=== PATIENT | female | born 2005 | race Caucasian/White ===

== ENCOUNTER 2025-08-09 23:12 | Emergency (ER) | payer OTHER ==
[2025-08-09 23:28] VITALS: PULSE 88; RESP 18; TEMP 98.2; BMI 25.7
[2025-08-10] MEDS ORDERED: ACETAMINOPHEN INJECTION 100 ML ONE (00:04)
[2025-08-10] MEDS ORDERED: MAG HYDROX/AL HYDROX/SIMETH 30 ML UNIT-DOSE CUP ONE (00:04)
[2025-08-10] MEDS ORDERED: ONDANSETRON 4 MG/2 ML VIAL ONE (00:05)
[2025-08-10] MEDS: MAG HYDROX/AL HYDROX/SIMETH 30 ML UNIT-DOSE CUP PO ONE (00:17)
[2025-08-10] MEDS: ONDANSETRON 4 MG/2 ML VIAL IVPUSH ONE (00:17)
[2025-08-10] MEDS: ACETAMINOPHEN 1000 MG/100 ML BAG IVPB ONE (00:18)
[2025-08-10] MEDS: LACTATED RINGERS SOLUTION 1000 ML INFUS.BAG IV ONE (00:25)
[2025-08-10 00:27] LABS: ABSOLUTE IMMATURE GRANULOCYTES 0.02 x10^3/uL (0.0-0.031); BASOPHILS # 0.03 x10^3/uL (0.01-0.08); EOSINOPHIL % 3.0 % (0.7-5.8); EOSINOPHILS # 0.26 x10^3/uL (0.04-0.36); MCHC 32.6 g/dl (32.2-35.5); MEAN CELL VOLUME 90.7 fl (79.4-94.8); MEAN PLT VOLUME 10.3 fl (9.4-12.3); MONOCYTE # 0.51 x10^3/uL (0.24-0.86); MONOCYTE % 5.9 % (4.7-12.5); RDW 12.8 % (12.1-16.5)
[2025-08-10 00:48] LABS: GLUCOSE,RANDOM 91.0 mg/dL (74-106); TOT PROT 7.7 g/dl (6.4-8.2)
[2025-08-10 00:49] LABS: CO2 24.0 mmol/L (21-32)
[2025-08-10 00:50] LABS: ALK PHOS 89.0 U/L (40-150)
[2025-08-10 00:53] LABS: CREATININE 0.71 mg/dL (0.55-1.3); SGOT/AST 37.0 U/L (5-34); SGPT/ALT 49.0 U/L (0-55)
[2025-08-10 00:53] LABS: HCG,QUALITATIVE URINE Negative
[2025-08-10 00:58] LABS: URINE APPEARANCE Clear; URINE BILIRUBIN Negative (NEGATIVE); URINE COLOR Yellow; URINE GLUCOSE (UA) Negative (NEGATIVE); URINE KETONE Trace (NEGATIVE); URINE LEUK ESTERASE Negative (NEGATIVE); URINE NITRITE Negative (NEGATIVE); URINE PROTEIN Negative (NEGATIVE); URINE UROBILINOGEN 0.2 mg/dL (0.2-1.0)
[2025-08-10 01:14] LABS: HCV DIAGNOSTIC IN-HOUSE W/RFLX NON-REACTIVE (NONREACTIVE); HIV INTERPRETATION NEGATIVE (NEGATIVE)
[2025-08-10 03:42] VITALS: BP 130/70
== END 2025-08-10 03:42 | disposition home or self-care (01) ==
LOC: JER 23:12
PROC: 3E033NZ Introduction of Analgesics, Hypnotics, Sedatives into Peripheral Vein, Percutaneous Approach (ICD-10-PCS; principal; 2025-08-09)
PROC: 3E033GC Introduction of Other Therapeutic Substance into Peripheral Vein, Percutaneous Approach (ICD-10-PCS; 2025-08-09)
DX: R51.9 Headache, unspecified (principal); M79.672 Pain in left foot; R50.9 Fever, unspecified; R11.10 Vomiting, unspecified
CPT/HCPCS: 36415; 70450-TC; 73610-TC-LT-FY; 73630-TC-LT; 80053; 81003; 82962; 84703; 85025; 86803; 87086; 87389; 87637-QW; 93005; 93010; 99285-25